=== PATIENT | female | born 1940 | race Caucasian/White ===

== ENCOUNTER 2017-12-17 17:23 | Emergency (ER) | payer MEDICARE, OTHER ==
[2017-12-17] MEDS ORDERED: Diphtheria,Pertussis(Acell),Tetanus Vaccine 0.5 ML SDV IM ONE (17:37)
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
[2017-12-17] MEDS ORDERED: Bacitracin/Neomycin/Polymyxin B Oint 0.9 GM U/D Packet TOP ONE (17:38)
== END 2017-12-17 18:25 | disposition home or self-care (01) ==
LOC: LL.ED 17:23
DX: S50.02XA Contusion of left elbow, initial encounter (principal); I25.10 Atherosclerotic heart disease of native coronary artery without angina pectoris; I10 Essential (primary) hypertension; E78.2 Mixed hyperlipidemia; G30.8 Other Alzheimer's disease; F02.80 Dementia in other diseases classified elsewhere, unspecified severity, without behavioral disturbance, psychotic disturbance, mood disturbance, and anxiety; J44.9 Chronic obstructive pulmonary disease, unspecified; F17.210 Nicotine dependence, cigarettes, uncomplicated; M15.0 Primary generalized (osteo)arthritis; W19.XXXA Unspecified fall, initial encounter; Z91.030 Bee allergy status; Z79.899 Other long term (current) drug therapy; Z88.2 Allergy status to sulfonamides; Z88.5 Allergy status to narcotic agent; Z79.01 Long term (current) use of anticoagulants; Z23 Encounter for immunization
CPT/HCPCS: 90471; 90715; 99284